=== PATIENT | male | born 1965 | race Caucasian/White ===

== ENCOUNTER 2020-10-26 12:33 | Inpatient (IN) ==
[2020-10-26] MEDS ORDERED: AMPICILLIN/SULBACTAM SOD 3,000 MG in 0.9 % SODIUM CHLORIDE 100 ML IV STA (12:57)
[2020-10-26] MEDS ORDERED: SODIUM CHLORIDE 0.9% 1000ML 1,000 ML IV SCH (13:00)
--- NOTE | 2020-10-26 13:03 | Emergency Department Note ---
History of Present Illness General Chief complaint: Dental/Oral Stated complaint: POST SURGERY INFECTION IN MOUTH Time Seen by Provider: 10/26/20 12:43 Source: patient Mode of arrival: ambulatory Limitations: no limitations History of Present Illness Maximum Pain Intensity: 0 This patient comes in complaining of dental/facial swelling. He had a tooth pulled his right lower posterior molar on Monday by a dentist and fell for has been on amoxicillin 500 3 times daily, he said initially the swelling was getting better but started getting worse over the weekend. He said that he has had no discharge the pain is very well controlled and he has no significant pain is just been using ibuprofen. There is no sensitivity to hot or cold. He is in no difficulty speaking or swallowing or shortness of breath. No swelling the mouth lips or tongue. No known exposure to Covid. He has been working from home. No fever or chills or cough or respiratory symptoms. No trauma or injury. Home Medications Medication Instructions Recorded Confirmed Type albuterol sulfate 2 puff INHALATION DAILY PRN 10/26/20 10/26/20 History hydrochlorothiazide 25 mg PO DAILY 10/26/20 10/26/20 History losartan 50 mg PO DAILY 10/26/20 10/26/20 History metoprolol succinate 100 mg PO DAILY 10/26/20 10/26/20 History Allergies Allergy/AdvReac Type Severity Reaction Status Date / Time No Known Allergies Allergy Unverified 10/26/20 14:00 Past Med/Surg History Social History Smoking Status: Never smoker Immunizations: Past medical historyhypertension. Denies diabetes. Denies any medication allergies. Review of Systems A total of 10 systems reviewed and were otherwise negative Physical Exam Vital Signs Vital Signs - 24 hr 10/26/20 12:36 10/26/20 14:13 10/26/20 16:55 Temperature 36.8 C Temperature Source Temporal Artery Scan Pulse Rate 89 81 Pulse Rate [Right Finger] 80 76 Pulse Rhythm [Right Finger] Regular Pulse Strength [Right Finger] Normal Respiratory Rate 18 16 20 Respiratory Effort / Characteristics Non-Labored Spontaneous Respiratory Depth Normal Respiratory Pattern Regular Blood Pressure 189/103 H Blood Pressure [Left Arm] 160/95 H 179/98 H Blood Pressure Mean 131 Blood Pressure Mean [Left Arm] 116 125 Pulse Oximetry 100 100 98 Oxygen Delivery Method Room Air Sepsis Recent Fever Within 48 Hours No Sepsis New/Unexplained Change in Mental Status No Sepsis Action Taken by Nursing No Action Required General: Well developed well nourished not ill-appearing nontoxic middle-age male who appears in no acute distress, breathing comfortably on room air. Normal speech, speaking and swallowing without difficulty HEENT: Normal cephalic atraumatic. He has moderate swelling of his right lateral mandible area. Its not red or warm respectively tender no fluctuance. Looking inside the mouth the floor the mouth is soft there is no Ludewig's angina. The tongue and lips are not swollen there is no posterior oropharyngeal swelling. The area of dental extraction has no pus drainage or fluctuance it is indurated mostly outside. Pupils are equal round and reactive to light. Extraocular movements are intact. Oropharynx is pink with moist mucous membranes. No swelling of the mouth lips or tongue. No drooling. Neck: Supple with a midline trachea. No meningeal signs or stiffness, no JVD or bruits. No Stridor. Chest: Clear to auscultation bilaterally. No wheezes or rhonchi. No increased work of breathing. Heart: Regular rate and rhythm without murmurs or gallops. Abdomen: Soft nontender, nondistended without rebound guarding or rigidity. Extremities: No cyanosis clubbing or edema. No calf tenderness or assymetry Spine/Back. Non tender to palpation. No CVA tenderness Skin: Good turgor without rashes. Neurologic exam: Cranial nerves two through 12 are intact. Motor and sensation are intact and symmetrical throughout. Course Administered Medications Discontinued Medications Acetaminophen (Acetaminophen 325 Mg Tab) Confirm Administered Dose 650 mg .ROUTE .STK-MED ONE Stop: 10/26/20 17:45 Last Admin: 10/26/20 17:45 Dose: 650 mg Documented by: [id number] Sodium Chloride (Nss 1000ml) 1,000 mls @ 999 mls/hr IV .Q1H1M ISMAEL Stop: 10/26/20 14:00 Last Infusion: 10/26/20 14:20 Dose: 0 mls/hr Documented by: [id number] Admin: 10/26/20 13:10 Dose: 999 mls/hr Documented by: [id number] Ampicillin Sodium/Sulbactam Sodium 3,000 mg/ Sodium Chloride 108 mls @ 200 mls/hr IV NOW STA; Protocol Stop: 10/26/20 13:29 Last Infusion: 10/26/20 14:20 Dose: 0 mls/hr Documented by: [id number] Admin: 10/26/20 13:13 Dose: 200 mls/hr Documented by: [id number] Sodium Chloride (Nss 1000ml) 1,000 mls @ 999 mls/hr IV .Q1H1M ONE Stop: 10/26/20 15:41 Last Infusion: 10/26/20 16:20 Dose: 0 mls/hr Documented by: [id number] Admin: 10/26/20 15:10 Dose: 999 mls/hr Documented by: [id number] Ioversol (Optiray 320 125ml) 94 ml IV ONCE ONE Stop: 10/26/20 14:03 Last Admin: 10/26/20 14:03 Dose: 94 ml Documented by: [id number] Medical Decision Making Differential Diagnosis Dental abscess, postop complication, dental caries, Michael's angina, abscess, Covid, electrolyte or metabolic abnormality Medical Records Attestation: I reviewed the patient's medical records. Home Medications Current Medication List: was personally reviewed by me Laboratory Data Attestation: I reviewed the patient's lab results. Result diagrams: 10/26/20 13:10 10/26/20 13:10 Lab Results 10/26/20 10/26/20 10/26/20 Range/Units 13:10 13:10 16:20 WBC 12.69 H (4.8-10.8) K/uL RBC 4.76 (4.7-6.1) M/uL Hgb 15.7 (14.0-18.0) g/dL Hct 42.8 (42-52) % MCV 89.9 (80-100) fL MCH 33.0 (25-34) pg MCHC 36.7 H (32-36) g/dL RDW Std Deviation 39.3 (36.4-46.3) fL RDW Coeff of Ben 11.9 (11.5-14.5) % Plt Count 472 H (130-400) K/uL MPV 9.1 (7.4-10.4) fL Immature Gran % (Auto) 3.3 % Neut % (Auto) 71.7 % Lymph % (Auto) 12.0 % [place] % (Auto) 12.2 % Eos % (Auto) 0.6 % Baso % (Auto) 0.2 % Neut # (Auto) 9.10 H (1.4-6.5) K/uL Lymph # (Auto) 1.52 (1.2-3.4) K/uL [place] # (Auto) 1.55 H (0.11-0.59) K/uL Eos # (Auto) 0.08 (0-0.5) K/uL Baso # (Auto) 0.02 (0-0.2) K/uL Immature Gran # (Auto) 0.42 H (0.00-0.02) K/uL Sodium 125 L (136-145) mmol/L Potassium 4.1 (3.5-5.1) mmol/L Chloride 94 L (98-107) mmol/L Carbon Dioxide 24 (21-32) mmol/L Anion Gap 7.0 (3-11) BUN 5 L (7-18) mg/dl Creatinine 0.87 (0.6-1.4) mg/dl Est Cr Clr Drug Dosing 124.6 ml/min Est GFR ( Amer) 113.4 Est GFR (Non-Af Amer) 97.8 BUN/Creatinine Ratio 6.1 L (10-20) Glucose 101 H (70-99) mg/dl Calcium 9.3 (8.5-10.1) mg/dl Total Bilirubin 0.8 (0.2-1) mg/dl AST 32 (15-37) U/L ALT 112 H (12-78) U/L Alkaline Phosphatase 111 (45-117) U/L Total Protein 7.9 (6.4-8.2) gm/dl Albumin 3.6 (3.4-5.0) gm/dl Globulin 4.3 H (2.5-4.0) gm/dl Albumin/Globulin Ratio 0.8 L (0.9-2) SARS-CoV-2 Ag (Rapid) Negative (Negative) Imaging Data Radiologist's Impression: CT soft tissue neck w con CT DOSE: 531.19 mGycm CLINICAL HISTORY: Right-sided neck/facial pain and swelling. TECHNIQUE: Helical images were acquired during intravenous administration of 94 cc of Optiray 320. A dose lowering technique was utilized adhering to the principles of ALARA. COMPARISON STUDY: None. FINDINGS: The visualized portions of the lung apices are unremarkable. There is a multinodular thyroid gland with nodules measuring up to 11 mm in diameter. There is infiltration of the fat adjacent to the right submandibular gland. There is an irregularly marginated 5 cm right submandibular mass with areas of central low attenuation suggesting necrosis or abscess. This lesion appears extrinsic to the right submandibular gland. Mildly prominent bilateral jugulodigastric lymph nodes, and submental lymph nodes are likely reactive. There is an empty right mandibular molar tooth socket consistent with a recent dental extraction. The bony defect extends to involve the medial mandibular cortex. There is no evidence of airway compromise. No mucosal space masses are visualized. IMPRESSION: 1. 5 cm right submandibular mass with areas of central low attenuation. Given the history of a recent dental extraction, this likely represents a postprocedural abscess or liquefying hematoma. Other less likely diagnostic considerations include necrotic neoplasm/lymph node, or secondarily infected branchial cleft cyst. MDM Narrative This patient comes in with continuing and worsening swollen area in his right jaw from where he had a tooth extracted he asked he has no pain and therefore do not think it is a dry socket he said no drainage. He is swollen. He has no evidence of airway compromise Ludewig's angina. He has been taking amoxicillin 500 mg 3 times daily is not red or warm. IV access established was hydrated normal saline bolus. Given Unasyn 3 g IV for antibiotic coverage and obtain blood work as well as a CAT scan to further evaluate for possibility of abscess. He was reassessed frequently. Dr. Barnes did see him in the emergency department as he does have an abscess he wants me to admit him and they will drain him in the morning in the OR at 930 also has a low sodium which is likely from his diuretics and he did receive a second liter IV normal saline bolus. T he patient was seen by Dr. Zurita medical consultation will be admitted for IV antibiotics and IV fluids and surgery in the morning. His Covid testing was negative and he has no symptoms to suggest Covid. Impression & Plan Dental abscess, Toothache, Acute hyponatremia, COVID-19 ruled out by laboratory testing Discharge Plan Visit Data Chief Complaint: Dental/Oral Stated Complaint: POST SURGERY INFECTION IN MOUTH ED Provider: Lisandro Zaman Discharge Problem: Dental abscess, Toothache, Acute hyponatremia, COVID-19 ruled out by laboratory testing Forms Stand Alone Forms: My [facility] Prescriptions Prescriptions: No Action losartan 50 mg tablet 50 mg PO DAILY RF: 0 metoprolol succinate 100 mg tablet extended release 24 hr 100 mg PO DAILY RF: 0 hydrochlorothiazide 25 mg tablet 25 mg PO DAILY RF: 0 albuterol sulfate 90 mcg/actuation HFA aerosol inhaler 2 puff INHALATION DAILY PRN (Reason: Shortness Of Breath) RF: 0
[2020-10-26 13:28] LABS: Basophils # (auto) 0.02 K/uL (0-0.2); Basophils % (auto) 0.2 %; Eosinophils # (auto) 0.08 K/uL (0-0.5); Eosinophils % (auto) 0.6 %; Hematocrit (blood only) 42.8 % (42-52); Hemoglobin 15.7 g/dL (14.0-18.0); Immature Granulocytes # (auto) 0.42 K/uL (0.00-0.02); Immature Granulocytes % (auto) 3.3 %; Lymphocytes # (auto) 1.52 K/uL (1.2-3.4); Mean Corpuscular Hgb Conc 36.7 g/dL (32-36); Mean Corpuscular Volume 89.9 fL (80-100); Mean Platelet Volume 9.1 fL (7.4-10.4); Monocytes # (auto) 1.55 K/uL (0.11-0.59); Monocytes % (auto) 12.2 %; Neutrophils % (auto) 71.7 %; Platelet Count 472 K/uL (130-400); RDW Coefficient of Variation 11.9 % (11.5-14.5); RDW Standard Deviation 39.3 fL (36.4-46.3); Red Blood Count 4.76 M/uL (4.7-6.1); White Blood Count 12.69 K/uL (4.8-10.8)
[2020-10-26 13:51] LABS: Albumin Level 3.6 gm/dl (3.4-5.0); BUN Creatinine Ratio 6.1 (10-20); Calcium 9.3 mg/dl (8.5-10.1); Creatinine Clr Calc Pharmacy 124.6 ml/min; Est GFR (African American) 113.4; Est GFR (Non-African American) 97.8; Potassium 4.1 mmol/L (3.5-5.1)
[2020-10-26 13:54] LABS: Albumin Globulin Ratio 0.8 (0.9-2); Bilirubin,Total 0.8 mg/dl (0.2-1); Globulin 4.3 gm/dl (2.5-4.0); Total Protein 7.9 gm/dl (6.4-8.2)
[2020-10-26] MEDS ORDERED: OPTIRAY 320 125ml IV ONE (14:02)
--- NOTE | 2020-10-26 14:26 | CT Scan Report ---
CT soft tissue neck w con CT DOSE: 531.19 mGycm CLINICAL HISTORY: Right-sided neck/facial pain and swelling. TECHNIQUE: Helical images were acquired during intravenous administration of 94 cc of Optiray 320. A dose lowering technique was utilized adhering to the principles of ALARA. COMPARISON STUDY: None. FINDINGS: The visualized portions of the lung apices are unremarkable. There is a multinodular thyroid gland with nodules measuring up to 11 mm in diameter. There is infiltration of the fat adjacent to the right submandibular gland. There is an irregularly m arginated 5 cm right submandibular mass with areas of central low attenuation suggesting necrosis or abscess. This lesion appears extrinsic to the right submandibular gland. Mildly prominent bilateral jugulodigastric lymph nodes, and submental lymph nodes are likely reactive . There is an empty right mandibular molar tooth socket consistent with a recent dental extraction. The bony defect extends to involve the medial mandibular cortex. There is no evidence of airway compromise. No mucosal space masses are visualized. IMPRESSION: 1. 5 cm right submandibular mass with areas of central low attenuation. Given the history of a recent dental extraction, this likely represents a postprocedural abscess or liquefying hematoma. Other les s likely diagnostic considerations include necrotic neoplasm/lymph node, or secondarily infected bran chial cleft cyst. ACT 112: Negative or not required by law. Electronically signed by: Shiva Haji M.D. 10/26/2020 2:24 PM
[2020-10-26] MEDS ORDERED: SODIUM CHLORIDE 0.9% 1000ML 1,000 ML IV ONE (14:41)
[2020-10-26] MEDS ORDERED: ACETAMINOPHEN 325 MG TAB ONE (17:44)
--- NOTE | 2020-10-26 19:00 | History & Physical Report ---
Date of Service October 26, 2020 Assessment & Plan (1) Dental abscess: 5 cm right submandibular mass/abscess- Status post dental extraction last week. Accumulated while on amoxicillin. Continue Unasyn 3 g IV every 6 hours, begun in the ED. Dr. Barnes taken to the OR in the morning. N.p.o. after midnight NSS + KCl 20 mEq at 100 mils per hour Present on Admission?: Yes (2) Toothache: (3) Acute hyponatremia: Sodium 125 upon admission. Hold HCTZ Present on Admission?: Yes (4) Abnormal LFTs: Can be followed as outpatient. Present on Admission?: Yes (5) Obesity (BMI 30-39.9): History of Present Illness Chief Complaint: The patient presents to the emergency department with complaint of right-sided face and jaw swelling, with history of a right lower posterior molar extraction 5 days ago, presently on amoxicillin 500 mg p.o. 3 times daily Primary Care Provider: Gogo Rendon MD The patient is a 55-year-old male with a past medical history of hypertension and obesity, who presents as noted above. He denies any systemic symptoms such as fevers, chills, nausea, vomiting, fatigue or weakness. He was seen by Dr. Barnes from maxillofacial surgery,, who asked that the patient be admitted to medical service overnight, and he was planning on taking the patient to the OR in the morning. Allergies Allergy/AdvReac Type Severity Reaction Status Date / Time No Known Allergies Allergy Unverified 10/26/20 14:00 Home Medications Medication Instructions Recorded Confirmed Type albuterol sulfate 2 puff INHALATION DAILY PRN 10/26/20 10/26/20 History hydrochlorothiazide 25 mg PO DAILY 10/26/20 10/26/20 History losartan 50 mg PO DAILY 10/26/20 10/26/20 History metoprolol succinate 100 mg PO DAILY 10/26/20 10/26/20 History Past Med/Surg History Social History Smoking Status: Never smoker Review of Systems Review of Systems: The patient denies chest pain, palpitations, shortness of breath, dyspnea on exertion, cough, lower extremity swelling, sore throat, fevers, chills, sweats, weight change, fatigue, nausea, vomiting, diarrhea , constipation, abdominal pain, pelvic pain, blood in urine or stool, dysuria, urinary frequency or urgency, lightheadedness, dizziness, headache, memory loss, loss of consciousness, imbalance, focal or generalized weakness, numbness or tingling in arms or legs, generalized arthralgias or myalgias, back or neck pain, or night sweats. The review of systems is otherwise negative other than for that already noted above, and at least 10 systems have been reviewed. Physical Exam Physical Exam: The patient is awake, alert and oriented 3, well developed and well nourished, large area of swelling centered over right mandibul ar/submandibular area, standing upright, walking around in room, and in no acute distress. HEENT--PERRL, EOMI, mucous membranes and oropharynx dry. Large area of swelling of the right mandibular submandibular area Neck--supple. No JVD. No bruits. Thyroid normal, trachea midline, no adenopathy. Heart--normal S1 and S2. No murmurs, rubs or gallops. Lungs--clear bilaterally, no respiratory distress, no accessory muscle use. Abdomen--normal bowel sounds and soft. Nontender. Nondistended. Obese. Extremities--no cyanosis or clubbing. No edema. Dermatologic--normal skin turgor. Erythema and induration over right mandibular submandibular area Neurologic--cranial nerves II through XII grossly intact. Rheumatologic--normal range of motion. Psychiatric--normal affect. Results & Data Results & Data ([facility]) Vital Signs (Past 12 Hours) Vital Signs Temp Pulse Pulse Resp BP BP Pulse Ox 10/26/20 18:35 76 20 154/94 H 98 10/26/20 16:55 76 20 179/98 H 98 10/26/20 14:13 81 80 16 160/95 H 100 10/26/20 12:36 98.2 F 89 18 189/103 H 100 Laboratory Results Laboratory Results WBC 12.69 K/uL (4.8-10.8) H 10/26/20 13:10 RBC 4.76 M/uL (4.7-6.1) 10/26/20 13:10 Hgb 15.7 g/dL (14.0-18.0) 10/26/20 13:10 Hct 42.8 % (42-52) 10/26/20 13:10 MCV 89.9 fL (80-100) 10/26/20 13:10 MCH 33.0 pg (25-34) 10/26/20 13:10 MCHC 36.7 g/dL (32-36) H 10/26/20 13:10 RDW Std Deviation 39.3 fL (36.4-46.3) 10/26/20 13:10 RDW Coeff of Ben 11.9 % (11.5-14.5) 10/26/20 13:10 Plt Count 472 K/uL (130-400) H 10/26/20 13:10 MPV 9.1 fL (7.4-10.4) 10/26/20 13:10 Immature Gran % (Auto) 3.3 % 10/26/20 13:10 Neut % (Auto) 71.7 % 10/26/20 13:10 Lymph % (Auto) 12.0 % 10/26/20 13:10 [place] % (Auto) 12.2 % 10/26/20 13:10 Eos % (Auto) 0.6 % 10/26/20 13:10 Baso % (Auto) 0.2 % 10/26/20 13:10 Neut # (Auto) 9.10 K/uL (1.4-6.5) H 10/26/20 13:10 Lymph # (Auto) 1.52 K/uL (1.2-3.4) 10/26/20 13:10 [place] # (Auto) 1.55 K/uL (0.11-0.59) H 10/26/20 13:10 Eos # (Auto) 0.08 K/uL (0-0.5) 10/26/20 13:10 Baso # (Auto) 0.02 K/uL (0-0.2) 10/26/20 13:10 Immature Gran # (Auto) 0.42 K/uL (0.00-0.02) H 10/26/20 13:10 Sodium 125 mmol/L (136-145) L 10/26/20 13:10 Potassium 4.1 mmol/L (3.5-5.1) 10/26/20 13:10 Chloride 94 mmol/L (98-107) L 10/26/20 13:10 Carbon Dioxide 24 mmol/L (21-32) 10/26/20 13:10 Anion Gap 7.0 (3-11) 10/26/20 13:10 BUN 5 mg/dl (7-18) L 10/26/20 13:10 Creatinine 0.87 mg/dl (0.6-1.4) 10/26/20 13:10 Est Cr Clr Drug Dosing 124.6 ml/min 10/26/20 13:10 Est GFR ( Amer) 113.4 10/26/20 13:10 Est GFR (Non-Af Amer) 97.8 10/26/20 13:10 BUN/Creatinine Ratio 6.1 (10-20) L 10/26/20 13:10 Glucose 101 mg/dl (70-99) H 10/26/20 13:10 Calcium 9.3 mg/dl (8.5-10.1) 10/26/20 13:10 Total Bilirubin 0.8 mg/dl (0.2-1) 10/26/20 13:10 AST 32 U/L (15-37) 10/26/20 13:10 ALT 112 U/L (12-78) H 10/26/20 13:10 Alkaline Phosphatase 111 U/L (45-117) 10/26/20 13:10 Total Protein 7.9 gm/dl (6.4-8.2) 10/26/20 13:10 Albumin 3.6 gm/dl (3.4-5.0) 10/26/20 13:10 Globulin 4.3 gm/dl (2.5-4.0) H 10/26/20 13:10 Albumin/Globulin Ratio 0.8 (0.9-2) L 10/26/20 13:10 SARS-CoV-2 Ag (Rapid) Negative (Negative) 10/26/20 16:20 Diagnostic Findings [facility], [phone] CT Scan Report Patient: AMY MENDOZA LEEAdmit Date: 10/26/20MR#: [id number]: [address] ID:[id number]: Date: [address] Zip: [place], [place] [id number]: 55Location: EDSex: MRoom/Bed:Att Phy:Diagnosis: POST SURGERY INFECTION IN MOUTHPri Phy: Gogo Rendon M.D.Service Date: 10/26/20Fa Phy:Interpreting Phy: Shiva Haji MDAdmit Phy: Ordering Phy: Lisandro Zaman M.D. cc: ~ CT soft tissue neck w con CT DOSE: 531.19 mGycm CLINICAL HISTORY: Right-sided neck/facial pain and swelling. TECHNIQUE: Helical images were acquired during intravenous administration of 94 cc of Optiray 320. A dose lowering technique was utilized adhering to the principles of ALARA. COMPARISON STUDY: None. FINDINGS: The visualized portions of the lung apices are unremarkable. There is a multinodular thyroid gland with nodules measuring up to 11 mm in diameter. There is infiltration of the fat adjacent to the right submandibular gland. There is an irregularly marginated 5 cm right submandibular mass with areas of central low attenuation suggesting necrosis or abscess. This lesion appears extrinsic to the right submandibular gland. Mildly prominent bilateral jugulodigastric lymph nodes, and submental lymph nodes are likely reactive. There is an empty right mandibular molar tooth socket consistent with a recent dental extraction. The bony defect extends to involve the medial mandibular cortex. There is no evidence of airway compromise. No mucosal space masses are visualized. IMPRESSION: 1. 5 cm right submandibular mass with areas of central low attenuation. Given the history of a recent dental extraction, this likely represents a postprocedural abscess or liquefying hematoma. Other less likely diagnostic considerations include necrotic neoplasm/lymph node, or secondarily infected branchial cleft cyst. ACT 112: Negative or not required by law. Electronically signed by: Shiva Haji M.D. 10/26/2020 2:24 PM Dictated: 10/26/20 141Transcribed: 10/26/20 141 Code Status & VTE Plan Code Status Full code VTE Prophylaxis Plan VTE Prophylaxis will be ordered: Yes PG Care Time/CCT Total # of Minutes Spent Total Time Spent with Patient: Total time spent is greater than 50% in coordination of care (as documented) at patient's floor/unit and/or counseling patient: Coding Level of Care Code 52862 Initial Inpt Care Lvl 2 Diagnoses Dental abscess K04.7 Toothache K08.89 Acute hyponatremia E87.1 Abnormal LFTs R94.5 Obesity (BMI 30-39.9) E66.9
[2020-10-26] MEDS ORDERED: ONDANSETRON INJ 2 MG/ML 2 ML VIAL IV PRN (19:44)
[2020-10-26] MEDS: AMPICILLIN/SULBACTAM SOD 3,000 MG in 0.9 % SODIUM CHLORIDE 100 ML IV SCH (20:32)
[2020-10-26] MEDS: NSS + 20MEQ KCL 20 MEQ/1,000 ML BAG IV SCH (20:32)
--- NOTE | 2020-10-26 20:45 | Oral/Maxillofacial Consult ---
Date of Consultation October 26, 2020 Oral Maxillofacial Surgery Exam emergency Room consult due to acute early onset of Michael Angina. Present Complaint: I have pain/swelling/drainage from where my infected tooth was extracted Dr Massey 5 days ago Symptoms / swelling improved slightly after the extraction but redeveloped Monday and progressively got worse prompting Tyrel coming into the ED this afternoon Oral Exam: Finding-Massive swelling left submandibular area and submental area crossing midline indurated and fluctuant areas noted, very tender,hot and painful. No floor of mouth swelling but painful to touch, no breathing airway issues presently. tender gingival tissue extra oral I&D is clinical indicated once we rehydrate and correct this Na levels and start IV antibiotics For I&D tomorrow in OR/ General anesthesia CT Scan: see report I reviewed the CT scan, infection present submandibular area and under chin (submental area) extraction site #31 Soft tissue: floor of the mouth, tongue--very tender to the touch, some swelling noted, area is red and slightly raised. hard/soft palate, posterior pharyngeal area all with in normal limits, no pathology or abnormal findings noted in theses areas The massive swelling is associated with the submandibular and submental area. No trismus as of yet, No swallowing issues as floor of mouth is just tender and slight swelling No other noted that require follow up or Bx. Oral Care: Overall oral care is good This is an isolated infection that developed before the tooth was extracted that has not responded to the extractions or oral antibiotics Occlusion: Class I TMJ exam: No pop, clicking, pain, good ROM, No history of TMJ injury or dysfunction Periodontal exam: Healthy gingival tissue without evidence of periodontal pathology Head/Neck exam: Neck is , FROM,swollen from above mentioned infection Able to extend and flex neck with some difficulty due to the infection right side., Treatment Plan: Set up with general anesthesia in hospital due to complexity of the procedure for extraoral I&D of acute facial infection (early Michael angina), obtain C&S. I reviewed the treatment plan and consent with the patient. Understanding was expressed. Time was given for questions regarding the surgery, risks and post op care. Discussed that there are no alternative to treatment--procedure (I&D) must be planned VIVIANA, Do not do surgery is not an option Risks discussed: Pain,swelling,infection, dry socket, delayed healing, nerve injury to face,lips,tongue,chin area which could be permanent (rare). TMJ, jaw stiffness, change in bite (rare), ear pain (referred). Development of skin fistula or reoccurrence of infection. Scaring, Must shave to allow access to the infected swollen sites Home care reviewed: tooth brushing, rinsing, follow up care with Dr Barnes to remove drains diet=[id number] dental. Discussed activity level, driving/work while on Rx pain Meds. Surgery set up for MondayOctober 27 at 9:15 NPO COVID testing Must Shave History of Present Illness Attending Physician: Garret Ritchie MD Allergies Allergy/AdvReac Type Severity Reaction Status Date / Time No Known Allergies Allergy Unverified 10/26/20 14:00 Home Medications Medication Instructions Recorded Confirmed Type albuterol sulfate 2 puff INHALATION DAILY PRN 10/26/20 10/26/20 History hydrochlorothiazide 25 mg PO DAILY 10/26/20 10/26/20 History losartan 50 mg PO DAILY 10/26/20 10/26/20 History metoprolol succinate 100 mg PO DAILY 10/26/20 10/26/20 History Patient History Social History Smoking Status: Never smoker Second Hand Exposure: No; Hx Alcohol Use: Yes Alcohol type: beer Hx Substance Use: No Preferred Language: Arabic Communication Ability: Effective 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 Beliefs That Will Affect Care: None Current Living Situation: Alone Feels Safe at Home: Yes Assistive Devices: Contacts and Glasses Physical Exam Constitutional: well groomed and + overweight Eyes: PERRL, conjunctivae normal, anicteric sclerae normal visual hui by confrontation ENMT: external ear and nose normal, oropharynx normal Mouth: + oral mucosal abnormality, + malodorous breath and + gingival abnormality Neck: normal visual inspection, trachea midline, + anterior neck swelling, + submandibular swelling, + short neck, + thick neck and + facial hair Thyroid: normal thyroid Skin: normal turgor Psychiatric: Orientation: oriented x 3 and oriented to person Apperance: appropriately groomed Eye Contact: good eye contact Lymphatic: + lymphadenopathy and + cervical lymphadenopathy Results & Data ([facility]) Vital Signs (Past 12 Hours) Vital Signs Temp Pulse Pulse Resp BP BP BP 12/14/20 19:51 36.1 C L 88 18 165/96 H 10/26/20 19:12 79 18 143/98 H 10/26/20 18:35 76 20 154/94 H 10/26/20 16:55 76 20 179/98 H 10/26/20 14:13 81 80 16 160/95 H 10/26/20 12:36 36.8 C 89 18 189/103 H Pulse Ox 10/26/20 19:51 99 10/26/20 19:12 100 10/26/20 18:35 98 10/26/20 16:55 98 10/26/20 14:13 100 10/26/20 12:36 100 PG Care Time/CCT Total # of Minutes Spent Total Time Spent with Patient: Total time spent is greater than 50% in coordination of care (as documented) at patient's floor/unit and/or counseling patient: Coding Level of Care Code 38880 Office/OBS Consult Lvl 3
[2020-10-27] MEDS: ACETAMINOPHEN 325 MG TAB PO PRN ×4 (00:08→23:59)
[2020-10-27] MEDS: AMPICILLIN/SULBACTAM SOD 3,000 MG in 0.9 % SODIUM CHLORIDE 100 ML IV SCH ×4 (02:17→18:53)
[2020-10-27] MEDS: NSS + 20MEQ KCL 20 MEQ/1,000 ML BAG IV SCH ×2 (06:30→12:54)
[2020-10-27 06:52] LABS: Basophils # (auto) 0.03 K/uL (0-0.2); Basophils % (auto) 0.2 %; Eosinophils # (auto) 0.08 K/uL (0-0.5); Eosinophils % (auto) 0.6 %; Hematocrit (blood only) 39.6 % (42-52); Hemoglobin 14.1 g/dL (14.0-18.0); Immature Granulocytes # (auto) 0.37 K/uL (0.00-0.02); Immature Granulocytes % (auto) 2.9 %; Lymphocytes # (auto) 1.92 K/uL (1.2-3.4); Lymphocytes % (auto) 14.8 %; Mean Corpuscular Hemoglobin 32.4 pg (25-34); Mean Corpuscular Hgb Conc 35.6 g/dL (32-36); Mean Platelet Volume 8.8 fL (7.4-10.4); Monocytes # (auto) 1.82 K/uL (0.11-0.59); Monocytes % (auto) 14.1 %; Neutrophils # (auto) 8.73 K/uL (1.4-6.5); Neutrophils % (auto) 67.4 %; Platelet Count 412 K/uL (130-400); RDW Standard Deviation 40.2 fL (36.4-46.3); Red Blood Count 4.35 M/uL (4.7-6.1); White Blood Count 12.95 K/uL (4.8-10.8)
[2020-10-27 07:00] LABS: Partial Thromboplastin Ratio 1.1; Partial Thromboplastin Time 31.6 Seconds (21.0-31.0)
[2020-10-27 07:28] LABS: Albumin Globulin Ratio 0.9 (0.9-2); Albumin Level 3.3 gm/dl (3.4-5.0); Bilirubin,Total 0.9 mg/dl (0.2-1); Creatinine Clr Calc Pharmacy 123.8 ml/min; Est GFR (African American) 113.4; Est GFR (Non-African American) 97.8; Globulin 3.9 gm/dl (2.5-4.0); Magnesium 2.1 mg/dl (1.8-2.4); Potassium 3.8 mmol/L (3.5-5.1); Total Protein 7.2 gm/dl (6.4-8.2)
--- NOTE | 2020-10-27 09:05 | Anesthesiology Consultation ---
Date of Service October 27, 2020 Assessment & Plan (1) Encounter for pre-operative examination: Chart Review Chart Review: Acceptable Risk for Surgery Consults Requested none ASA ASA2 Proposed Anesthesia Anesthesia Type: General Risk / Benefits Reviewed With: PT / POA / Parent / Guardian, Accepts Plan and Informed Consent Obtained History Surgery Operation Date: 10/27/20 09:10 Proposed Procedures p Right Facial Incision and Drainage - Joni Barnes, DMD Height/Weight Height: 6 ft Weight: 109 kg Allergies Allergy/AdvReac Type Severity Reaction Status Date / Time No Known Allergies Allergy Unverified 10/26/20 14:00 Medications Home Medications Medication Instructions Recorded Confirmed Last Taken albuterol sulfate 2 puff INHALATION DAILY PRN 10/26/20 10/26/20 10/26/20 hydrochlorothiazide 25 mg PO DAILY 10/26/20 10/26/20 10/26/20 losartan 50 mg PO DAILY 10/26/20 10/26/20 10/26/20 metoprolol succinate 100 mg PO DAILY 10/26/20 10/26/20 10/26/20 Active Medications Generic Name Dose Route Start Last Admin Trade Name Freq PRN Reason Stop Dose Admin Acetaminophen 650 mg 10/26/20 19:44 10/27/20 00:08 Acetaminophen 325 Mg Tab PO 11/25/20 19:43 650 mg Q4H PRN Administration pain/fever Potassium Chloride/Sodium Chloride 20 meq in 1,000 mls @ 100 mls/hr 10/26/20 19:45 10/27/20 06:30 Normal Saline W/20 Meq Kcl IV 11/25/20 19:44 100 mls/hr .Q10H ISMAEL Administration Ampicillin Sodium/Sulbactam 108 mls @ 200 mls/hr 10/26/20 20:00 10/27/20 02:50 Sodium 3,000 mg/ Sodium IV 11/02/20 19:59 Infused Chloride Q6H ISMAEL Infusion Protocol NPO Date Last Intake of Fluids: 10/26/20 Time Last Intake of Fluids: 23:59 Date Last Intake of Solids: 10/26/20 Time Last Intake of Solids: 23:00 Past Medical History Medical History (Updated 10/27/20 @ 09:08 by Alton Jernigan DO) HTN (hypertension) Exercise / Class Metabolic Activity II 4-5 Yardwork/Stairs/Walk up hill Past Anesthesia History No Hx of Anesthesia Complications and No Family Hx of Anesthesia Complications History of PONV No Hx of PONV and No Hx of Motion Sickness Social History Smoking Status: Never smoker Do You Dip or Chew Tobacco: Yes Hx Alcohol Use: Yes Alcohol type: beer alcohol intake frequency: a few times a week Hx Substance Use: No substance use type: does not use Physical Exam Vital Signs Last Vital Signs Temp 98.1 F 10/27/20 07:05 Pulse 94 H 10/27/20 08:56 Resp 18 10/27/20 08:56 BP 153/89 H 10/27/20 08:56 Pulse Ox 97 10/27/20 08:56 ENMT Mouth: no dentition abnormality Thyromental Distance: > or= 3.5 Finger Breadths Mallampati Class: III Neck normal visual inspection Respiratory normal respiratory effort Auscultation: lungs clear to auscultation bilaterally Cardiovascular Rate/Rhythm: regular rate and regular rhythm Testing Laboratory Results 10/27/20 06:34 10/27/20 06:34 PT 11.0 Seconds (9.0-12.0) 10/27/20 06:34 INR 1.0 (0.9-1.1) 10/27/20 06:34 APTT 31.6 Seconds (21.0-31.0) H 10/27/20 06:34
[2020-10-27] MEDS ORDERED: fentaNYL citrate 100 MCG/2 ML VIAL ONE ×3 (09:26→11:38)
[2020-10-27] MEDS ORDERED: DEXAMETHASONE SOD INJ 4 MG/ML VIAL ONE (09:26)
[2020-10-27] MEDS ORDERED: ONDANSETRON INJ 2 MG/ML 2 ML VIAL ONE (09:26)
[2020-10-27] MEDS ORDERED: PROPOFOL IV EMULSION 10 MG/ML 20 ML VIAL IV ONE (09:26)
[2020-10-27] MEDS ORDERED: MIDAZOLAM HCL 1 MG/ML 2ML VIAL ONE (09:26)
[2020-10-27] MEDS ORDERED: ROCURONIUM BROMIDE 10 MG/ML 5 ML VIAL IV ONE (09:26)
[2020-10-27] MEDS ORDERED: LIDOCAINE HCL 2% 2 ML VIAL/AMP(20MG/ML) INFIL ONE (09:26)
--- NOTE | 2020-10-27 09:33 | History & Physical Bridge Note ---
Date of Service October 27, 2020 History & Physical Bridge Note I have examined the patient, reviewed the History & Physical and in the interval since the performance of the History & Physical I have noted the following changes of clinical significance: no changes noted We will plan I and D today with C&S
[2020-10-27] MEDS ORDERED: CHLORHEXIDINE GLUCONATE 0.12% 480 ML ONE (10:23)
[2020-10-27] MEDS ORDERED: BUPIVACAINE/EPINEPHRINE 0.5% MPF 1:200,000 30 ML VIAL ONE (10:25)
[2020-10-27] MEDS ORDERED: LIDOCAINE 2%/EPINEPHRINE 1:100,000 1.8 ML CARTRIDGE ONE (10:28)
[2020-10-27] MEDS: LOSARTAN POTASSIUM 50 MG TAB PO SCH (10:28)
[2020-10-27] MEDS: METOPROLOL SUCC 50MG EXT REL TAB PO SCH (10:29)
[2020-10-27] MEDS ORDERED: SUCCINYLCHOLINE CHLORIDE 20 MG/ML 10 ML VIAL IV ONE (10:30)
[2020-10-27] MEDS ORDERED: CLINDAMYCIN PHOS 300 MG/2 ML VIAL ONE (10:39)
[2020-10-27] MEDS ORDERED: NEOSTIGMINE METHYLSULFATE 5 MG/5 ML SYR ONE (11:01)
[2020-10-27] MEDS ORDERED: ALBUTEROL HFA INHALER 8.5 GM ONE (11:01)
[2020-10-27] MEDS ORDERED: LABETALOL HCL IV 5 MG/ML 20ML IV ONE (11:01)
[2020-10-27] MEDS ORDERED: GLYCOPYRROLATE 0.2 MG/ML VIAL ONE (11:01)
[2020-10-27] MEDS ORDERED: CHLORHEXIDINE GLUCONATE 0.12% 480 ML MT PRN (11:15)
--- NOTE | 2020-10-27 11:15 | Post Operative Brief Note ---
PG Immediate Post Op with CF Date of Surgery October 27, 2020 Pre & Post Diagnosis Operation Date: 10/27/20 09:10 Pre-Op Diagnosis: Post Surgery Infection in Mouth, Michael Angina right side - Post-Op Diagnosis: Post Surgery Infection in Mouth (same) I identified the patient and participated in the time-out.: Yes Procedure Operation Date: 10/27/20 09:10 Actual Procedures p Right Facial Incision and Drainage(Right) - Joni Barnes DMD Surgeon Joni Barnes, TERA Turner Machine none Estimated Blood Loss 10 Findings Consistent with Post-Op Diagnosis
[2020-10-27] MEDS ORDERED: ONDANSETRON INJ 2 MG/ML 2 ML VIAL IV PRN (11:47)
[2020-10-27] MEDS ORDERED: ePHEDrine sulfate 50 MG/ML AMP IV PRN (11:47)
[2020-10-27] MEDS ORDERED: fentaNYL citrate 100 MCG/2 ML VIAL IV PRN ×2 (11:47)
[2020-10-27] MEDS ORDERED: ATROPINE SULFATE 0.1 MG/ML 10ML SYR IV PRN (11:47)
--- NOTE | 2020-10-27 11:53 | Anesthesiology Progress Note ---
Date of Service October 27, 2020 Anesthesia Post Procedure Vital Signs Vital Signs: Temp Pulse Pulse Pulse Resp BP BP 10/27/20 11:45 66 12 136/73 10/27/20 11:35 83 18 144/78 H 10/27/20 11:25 82 15 135/86 10/27/20 11:19 98.2 F 98 H 18 139/69 10/27/20 08:56 98.1 F 94 H 18 153/89 H 10/27/20 07:05 98.1 F 92 H 18 10/26/20 23:37 98.2 F 93 H 16 10/26/20 19:51 97.0 F L 88 18 10/26/20 19:12 79 18 143/98 H 10/26/20 18:35 76 20 154/94 H 10/26/20 16:55 76 20 179/98 H 10/26/20 14:13 81 80 16 160/95 H 10/26/20 12:36 98.2 F 89 18 189/103 H BP Pulse Ox 10/27/20 11:45 93 10/27/20 11:35 94 10/27/20 11:25 95 10/27/20 11:19 98 10/27/20 08:56 97 10/27/20 07:05 153/92 H 97 10/26/20 23:37 157/93 H 96 10/26/20 19:51 165/96 H 99 10/26/20 19:12 100 10/26/20 18:35 98 10/26/20 16:55 98 10/26/20 14:13 100 10/26/20 12:36 100 Pain Intensity Right Jaw: Pain Intensity: 4 Transfer of Care Handoff Completed per policy Notes Mental Status: alert / awake / arousable and participated in evaluation Patient Amnestic to Procedure: Yes Nausea / Vomiting: adequately controlled Pain: adequately controlled Airway Patency, RR, SpO2: stable & adequate BP & HR: stable & adequate Hydration State: stable & adequate Anesthetic Complications: no major complications apparent and Pt Satisfied with anesthetic care
--- NOTE | 2020-10-27 13:38 | Hospitalist Progress Note ---
Date of Service October 27, 2020 Assessment & Plan (1) Dental abscess: - 5 cm right submandibular mass/abscess- Status post dental extraction last week. Accumulated while on amoxicillin. - Continue Unasyn 3 g IV q6h, started on admission - likely can transition to PO tomorrow - Dr. Barnes performed I&D 10/27- appreciate - Allowed clear liquid diet for now - NSS + KCl 20 mEq at 100 ml/hr - likely can dc this later today if tolerates PO intake. - Follow am labs and wound cultures (2) Toothache: - As above (3) Acute hyponatremia: - Improved to 132 - pt admits to drinking 3-5 beers per day at least 4-5 days per week. Reports goes 4-5 days without drinking any alcohol at times. Possible hyponatremia secondary to beer potomania. Encouraged to diminish alcohol intake. Denies ever having withdrawal sx, monitor. - Hold HCTZ -follow BMP (4) Abnormal LFTs: - Can be followed as outpatient - Likely secondary to alcohol use as above, monitor and are improved today -added thiamine, folic acid, MVI (5) Obesity (BMI 30-39.9): - Diet and exercise to be encouraged (6) Tobacco use: - chews tobacco, cessation encouraged. Stated should not chew during active healing s/p dental abscess I&D. Pt agreeable. Will order nicotine patch. (7) HTN (hypertension): - Cont losartan 50 mg daily and metoprolol succinate 100 mg daily, holding hctz as above DVT ppx: ambulatory CODE: FULL Dispo: From home, plan to discharge once stable per oromaxillofacial surg, likely remain in hospital x 1 more day. Admission and Anticipated Discharge Date Admission Date: October 26, 2020 Supervising Physician Co-Signing Physician Notes PA Supervision Note: I did not personally see or examine the patient today, but I verified all louise points of LIAN Mcdaniel's assessment and plan with the following exceptions/additions: None Subjective Pt is doing well s/p surgery, he is seen eating lunch which is clear liquid diet, tolerating it without any issues. He reports chewing tobacco- encouraged to stop - stated should avoid this completely for next two weeks for healing purposes. He was agreeable to a nicotine patch. Denies any other acute complaints. Review of Systems Review of Systems: Constitutional: No fever, sweats or chills Eyes: No diplopia, no worsening or blurred vision ENT: normal hearing, no trouble swallowing, eating clear liquid diet without difficulty, slight soreness on outside of left mandible. Respiratory: No cough, sputum, dyspnea at rest or on exertion Cardiovascular: No chest pain, tightness or palpitations Abdomen: No pain, nausea, vomiting, diarrhea or constipation Musculoskeletal: No joint pain, calf pain, swelling Neurologic: No weakness, numbness/tingling, or balance problems Psychiatric: No anxiety or depression Skin: No rash or itch Physical Exam Physical Exam: General: awake, alert, no apparent distress, + obese BMI 32.6 Head: Normocephalic, atraumatic ENT: PERRL, EOMI, no pharyngeal exudate, mucous membranes moist, + poor dentition, + surgical bandage on R submandibular region c/d/i. Chest: Clear to auscultation, on room air, no adventitious breath sounds Cardiac: Regular rate and rhythm, no murmur, no JVD, normal peripheral pulses, good capillary refill Abdominal: NABS x 4 quadrants, soft, nondistended, nontender to palpation, no rebound or guarding Extremities: Normal inspection, no peripheral edema or erythema, calfs nontender to palpation Psych: Normal mood and affect Neuro: AAO x 3, strength intact bilaterally and rated 5/5, no motor deficits, speech is clear, no peripheral sensory deficits Results & Data Results & Data ([facility]) Vital Signs (Past 12 Hours) Vital Signs Temp Pulse Pulse Resp BP BP Pulse Ox 10/27/20 13:14 36.5 C 96 H 18 156/96 H 96 10/27/20 12:45 36.6 C 92 H 18 160/96 H 95 10/27/20 12:15 37.0 C 82 16 146/84 H 95 10/27/20 11:55 37 C 68 14 120/76 95 10/27/20 11:45 66 12 136/73 93 10/27/20 11:35 83 18 144/78 H 94 10/27/20 11:25 82 15 135/86 95 10/27/20 11:19 36.8 C 98 H 18 139/69 98 10/27/20 08:56 36.7 C 94 H 18 153/89 H 97 10/27/20 07:05 36.7 C 92 H 18 153/92 H 97 PG Care Time/CCT Total # of Minutes Spent Total Time Spent with Patient: Total time spent is greater than 50% in coordination of care (as documented) at patient's floor/unit and/or counseling patient: Coding Level of Care Code 29852 Subseq Hosp Care Lvl 3 Diagnoses Dental abscess K04.7 Toothache K08.89 Acute hyponatremia E87.1 Abnormal LFTs R94.5 Obesity (BMI 30-39.9) E66.9 Tobacco use Z72.0 HTN (hypertension) I10
[2020-10-27] MEDS ORDERED: traMADol HCL 50 MG TABLET PO PRN (14:04)
[2020-10-27] MEDS: NICOTINE 21 MG/24 HR TDSY TD SCH (15:28)
[2020-10-27] MEDS ORDERED: METOPROLOL SUCC 50MG EXT REL TAB PO STA (22:54)
--- NOTE | 2020-10-27 22:56 | Communication Note ---
Date of Service: October 27, 2020 Notifiede by nursing of elevated BP 150/92, rate 98. Wasn't as concerned as asymptomatic, but on chart review didn't recieve his beta-christal this mornign as was in surgey. Will give half of regular dose tonight Toprol XL 50mg PO for cardio protection. Resident Activity Tracking Resident Involvement: Resident Care Provided Care Provided: Adult Hospital Medicine
[2020-10-28] MEDS: AMPICILLIN/SULBACTAM SOD 3,000 MG in 0.9 % SODIUM CHLORIDE 100 ML IV SCH ×2 (00:03→06:11)
[2020-10-28] MEDS: NSS + 20MEQ KCL 20 MEQ/1,000 ML BAG IV SCH ×2 (01:05→09:40)
[2020-10-28 06:04] LABS: Basophils # (auto) 0.03 K/uL (0-0.2); Basophils % (auto) 0.2 %; Eosinophils # (auto) 0.05 K/uL (0-0.5); Eosinophils % (auto) 0.4 %; Hematocrit (blood only) 37.4 % (42-52); Immature Granulocytes # (auto) 0.43 K/uL (0.00-0.02); Immature Granulocytes % (auto) 3.6 %; Lymphocytes # (auto) 1.83 K/uL (1.2-3.4); Lymphocytes % (auto) 15.1 %; Mean Corpuscular Hemoglobin 32.3 pg (25-34); Mean Corpuscular Hgb Conc 34.8 g/dL (32-36); Mean Corpuscular Volume 92.8 fL (80-100); Mean Platelet Volume 8.7 fL (7.4-10.4); Monocytes # (auto) 1.65 K/uL (0.11-0.59); Monocytes % (auto) 13.6 %; Neutrophils # (auto) 8.11 K/uL (1.4-6.5); Neutrophils % (auto) 67.1 %; Platelet Count 440 K/uL (130-400); RDW Coefficient of Variation 12.1 % (11.5-14.5); RDW Standard Deviation 41.4 fL (36.4-46.3); Red Blood Count 4.03 M/uL (4.7-6.1)
[2020-10-28 06:24] LABS: Albumin Level 3.3 gm/dl (3.4-5.0); BUN Creatinine Ratio 6.8 (10-20); Calcium 8.7 mg/dl (8.5-10.1); Creatinine Clr Calc Pharmacy 114.6 ml/min; Est GFR (African American) 106.1; Est GFR (Non-African American) 91.6; Potassium 3.9 mmol/L (3.5-5.1)
[2020-10-28 06:27] LABS: Albumin Globulin Ratio 0.9 (0.9-2); Bilirubin,Total 0.7 mg/dl (0.2-1); Globulin 3.8 gm/dl (2.5-4.0); Total Protein 7.1 gm/dl (6.4-8.2)
[2020-10-28] MEDS: NICOTINE 21 MG/24 HR TDSY TD SCH (07:40)
[2020-10-28] MEDS ORDERED: THIAMINE HCL 100 MG TAB PO SCH (09:00)
[2020-10-28] MEDS ORDERED: FOLIC ACID 400 MCG TAB PO SCH (09:00)
[2020-10-28] MEDS ORDERED: MULTIVITAMIN TAB PO SCH (09:00)
[2020-10-28] MEDS: LOSARTAN POTASSIUM 50 MG TAB PO SCH (09:06)
[2020-10-28] MEDS: METOPROLOL SUCC 50MG EXT REL TAB PO SCH (09:06)
--- NOTE | 2020-10-28 10:20 | Oral/Maxillofacial Progress Nt ---
Date of Service Post op day # 1 He is doing very well, drains functioning very well. Swelling much softer. No airway issues or swallowing issues. I feel he can be sent home on Augmentin 875 BID with Clindamycin 300 BID x 10 days. Suggested massage, heat and change dressing as needed. I will see him on Monday for drain removal. If OK with medicine He will be D/C this AM EXCELLENT response from I&D yesterday October 28, 2020 Assessment & Plan Admission and Anticipated Discharge Date Admission Date: October 26, 2020 Subjective Pt is doing well s/p surgery, he is seen eating lunch which is clear liquid diet, tolerating it without any issues. He reports chewing tobacco- encouraged to stop - stated should avoid this completely for next two weeks for healing purposes. He was agreeable to a nicotine patch. Denies any other acute complaints. Physical Exam Constitutional: well groomed and + overweight Eyes: PERRL, conjunctivae normal, anicteric sclerae normal visual hui by confrontation ENMT: external ear and nose normal, oropharynx normal Mouth: + oral mucosal abnormality, + malodorous breath and + gingival abnormality Neck: normal visual inspection, trachea midline, + anterior neck swelling, + submandibular swelling, + short neck, + thick neck and + facial hair Thyroid: normal thyroid Skin: normal turgor Psychiatric: Orientation: oriented x 3 and oriented to person Apperance: appropriately groomed Eye Contact: good eye contact Lymphatic: + lymphadenopathy and + cervical lymphadenopathy Results & Data ([facility]) Vital Signs (Past 12 Hours) Vital Signs Temp Pulse Pulse Resp BP Pulse Ox 10/28/20 08:00 36.8 C 87 16 191/98 H 99 10/28/20 02:50 36.6 C 85 16 160/90 H 99 10/27/20 23:44 36.7 C 97 H 16 170/102 H 97 PG Care Time/CCT Total # of Minutes Spent Total Time Spent with Patient: Total time spent is greater than 50% in coordination of care (as documented) at patient's floor/unit and/or counseling patient: Coding Level of Care Code 14291 Subseq Hosp Care Lvl 1
--- NOTE | 2020-10-28 11:35 | Discharge Summary ---
Date of Service October 28, 2020 Admission HPI Per Admitting Provider The patient is a 55-year-old male with a past medical history of hypertension and obesity, who presents as noted above. He denies any systemic symptoms such as fevers, chills, nausea, vomiting, fatigue or weakness. He was seen by Dr. Barnes from maxillofacial surgery,, who asked that the patient be admitted to medical service overnight, and he was planning on taking the patient to the OR in the morning. Principal Diagnosis Michael's Angina Discharge Exam Constitutional WD/WN, vitals as above Eyes + anicteric sclerae ENMT right side of neck with dressing in palce not removed, speech normal Neck trachea midline, no thyromegaly Respiratory normal respiratory effort, lungs clear to auscultation Cardiovascular RRR, no murmur, no edema Musculoskeletal Extremities: extremities normal to inspection; no cyanosis and no clubbing Skin no rashes, warm and dry Neurologic moves all extremities and awake; no focal motor deficits Psychiatric A+Ox3, euthymic affect Lymphatic no lymphedema Discharge Data Allergies Allergy/AdvReac Type Severity Reaction Status Date / Time No Known Allergies Allergy Unverified 10/30/20 10:07 Consultations 10/26/20 15:50 ED Decision to Admit Stat [facility]-Dr. Joni Barnes Procedures Performed Operation Date: 10/27/20 09:10 Actual Procedures p Right Facial Incision and Drainage(Right) - Joni Barnes, TERA Ordered Studies 10/26/20 12:55 CT soft tissue neck w con Stat Hospital Course (1) Michael's angina: - 5 cm right submandibular mass/abscess- Status post dental extraction last week. Accumulated while on amoxicillin. - terated with Unasyn 3 g IV q6h - Dr. Barnes performed I&D 10/27- appreciate, drain left in place and plan for outpt follow up closely tolerating diet and stable for dc to home on Augmentin and clinda as per OMFS recommendation pain control as needed (2) Dental abscess: as above (3) Acute hyponatremia: - Improved to 132 - pt admits to drinking 3-5 beers per day at least 4-5 days per week. Reports goes 4-5 days without drinking any alcohol at times. Possible hyponatremia secondary to beer potomania. Encouraged to diminish alcohol intake. Denies ever having withdrawal sx, monitor. - Held HCTZ while here but can restart upon discharge -advised cessation of EtOH -follow BMP with PCP as outpt (4) Abnormal LFTs: mildly elevated upon admission, then normal on day of discharge - Likely secondary to alcohol use as above, counseled on cessation as above -added thiamine, folic acid, MVI to be continued upon discharge (5) Obesity (BMI 30-39.9): - Diet and exercise to be encouraged BMI 32.6 (6) Tobacco use: - chews tobacco, cessation encouraged. Stated should not chew during active healing s/p dental abscess I&D. Pt agreeable. -order nicotine patch. (7) HTN (hypertension): BPs quite elevated here but missed meds on day of admission. BPs improved - Cont losartan 50 mg daily and metoprolol succinate 100 mg daily, restarting hctz as above, watch for hyponatermia as outpt DVT ppx: ambulatory CODE: FULL Dispo: stable for dc to home Total Time Total Time Spent Total Time Spent (In Minutes): 35 min Total Time Includes: Examination of the Patient, Discharge Planning and Medication Reconciliation Discharge Plan Discharge Items Patient Disposition: Home - Self-Care Reason For Visit: POST SURGERY INFECTION IN MOUTH Discharge Diagnosis: s/p submandibular infection Condition on Discharge: Good Goals: avoid chewing tobacco Activity: Resume your previous activity Lifting: Gradually increase as tolerated Bathing: No limitations Exercise/Sports: Wait until after follow-up appointment Driving/Machine Use: Resume 1 day after discharge Weightbearing: Full weightbearing Non-emergency contact: Surgeon Call non-emergency contact if: you have any medication questions, your symptoms worsen, your pain is not controlled, your pain is worsening, your temperature is above 101.5, your wound has increased redness, your wound has increased drainage and your wound pain has increased Follow-up/Referrals: Gogo Rendon MD [Primary Care Provider] - (Follow upwithin 1 week) Joni Banres DMD [Physician] - 10/30/20 8:30 am Diet: Heart Healthy Diet Texture: Easy to Chew Addtl Attending Provider Instructions: ADDITIONAL ACTIVITY RECOMMENDATIONS: * Ethel teeth after every meal. It is very important to keep your mouth clean to prevent infection. * Starting tonight rinse with the Peridex as directed then 2 x a day * it is very important to keep well hydrated, this prevents fever SPECIAL CARE INSTRUCTIONS: * apply heat (hot water bottle or heating pad) for the next two days, as often as possible. * Tomorrow start rinsing your mouth with 1/2 teaspoon salt in 8 ounces warm water. This rinse should be used every 4-6 hours. * You may experience slight nausea. To prevent this, never take your medication on an empty stomach. If nauseated, take small sips of franklin michelle until you feel better; then you may start on applesauce and toast. * Some swelling is common. It should gradually decrease within 4-5 days. * A certain amount of bleeding is to be expected. It is often possible to control mild oozing by placing folded gauze over the area and biting down for 30 minutes. If you are unable to control excessive bleeding, call Dr Barnes at [phone] * You may experience some discomfort for a few days. If pain or swelling increases, Call Dr Barnes * Return to the office for a follow up check up if one was given to you. * If you do not have a follow up appointment please call the office at [phone] and set one up for 10-15 days after your surgery Addtl Technical Solution Architect Provider Instructions: Please refrain from drinking alcohol. You should continue on the vitamins recommended for you to improve your nutrition. Your sodium level was low due to your water pill and possibly dehydration. It is ok to restart your HCTZ but please have your primary care physician follow up on your sodium levels after your visit. Pending Studies at Discharge: Yes Studies:: C&S results Stand-Alone Forms: My [facility] mobifriends, Opioid Pain Management, Smoking Cessation Medications and DC Order Prescriptions: New folic acid 400 mcg Tablet 400 mcg PO QAM Qty: 30 RF: 0 multivitamin [Daily-Winnie] Tablet 1 tab PO QAM Qty: 30 RF: 0 thiamine HCl (vitamin B1) [Vitamin B-1] 100 mg Tablet 100 mg PO QAM Qty: 30 RF: 0 Continued amoxicillin-pot clavulanate 875-125 mg tablet 1 tab PO Q12H Qty: 20 RF: 0 clindamycin HCl 300 mg capsule 300 mg PO BID 7 Days Qty: 20 RF: 0 chlorhexidine gluconate [Peridex] 0.12 % mouthwash 15 ml mucous membrane BID Qty: 473 RF: 0 nicotine [Nicoderm CQ] 21 mg/24 hr patch 24 hour 1 patch transdermal DAILY Qty: 28 RF: 0 losartan 50 mg tablet 50 mg PO DAILY RF: 0 metoprolol succinate 100 mg tablet extended release 24 hr 100 mg PO DAILY RF: 0 hydrochlorothiazide 25 mg tablet 25 mg PO DAILY RF: 0 albuterol sulfate 90 mcg/actuation HFA aerosol inhaler 2 puff INHALATION DAILY PRN (Reason: Shortness Of Breath) RF: 0 Discharge Orders: Discharge Order (Routine); Ordered 10/28/20 Ordered By: Joni Oneil/Other Patient Handouts: ED Dental Abscess Facial Cellulitis Admission Data Admit Date/Time: 10/26/20 16:55 Attending Provider: Aileen Oliver Admit Provider: Garret Ritchie Primary Care Provider: Gogo Rendon Other Providers: Joni Barnes Interventions: Discharge Summary Assessment (RN) Last Done: 10/28/20 09:29 Coding Level of Care Code D/C Day Management >30 mins Diagnoses Michael's angina K12.2 Dental abscess K04.7 Acute hyponatremia E87.1 Abnormal LFTs R94.5 Obesity (BMI 30-39.9) E66.9 Tobacco use Z72.0 HTN (hypertension) I10
--- NOTE | 2020-11-01 22:16 | Operative Report ---
PG Post Operative Report Pre & Post Diagnosis Operation Date: 10/27/20 09:10 Pre-Op Diagnosis: Post Surgery Infection in Mouth Post-Op Diagnosis: Post Surgery Infection in Mouth I identified the patient and participated in the time-out.: Yes Procedure Operation Date: 10/27/20 09:10 Actual Procedures p Right Facial Incision and Drainage(Right) - Joni Barnes, DMD ADMITTING DIAGNOSES: WILL ANGINA Acute right side subperiosteal, submandibular submental and masseteric space infection secondary to fractured and infected teeth which was extracted about 1 week ago by his dentist, he had swelling at that time as well but now much worse. POSTOPERATIVE DIAGNOSES: Acute right side subperiosteal, submandibular/ submental and masseteric space infection secondary to fractured and infected tooth which was removed by dentist # [id number] OPERATION: Incision and drainage of acute subperiosteal, submandibular and masseteric space abscess Will ANGINA I&D OPERATION IN DETAIL: After this patient was cleared to undergo general anesthesia, brought down to the operating room and placed under general anesthesia via oral-tracheal intubation. After adequate anesthesia was obtained, the patient was prepped and draped in the usual manner for incision and drainage of facial infection. At this time, the facial area was prepped in the usual manner and sterile dressings were applied. At this time, a time-out was taken to ensure that we had Eddi Wilbert in the room, which we did and that we had the appropriate positioning, antibiotic delivery and the chart completion and the proper site. Being everyone agreed and the operation now began. Sterile dressings were applied around the facial area and the area was isolated. At this time, an oropharyngeal throat pack was placed. Oral cavity was irrigated, dried, and Peridex mouth rinse was also irrigated into the mouth. A bite block was placed on the left side and I turned my attention now to the lower right side. I then used local anesthesia in the form of lidocaine 2 % with epi with a vasoconstrictor and obtained a block of the inferior alveolar nerve on the right side. After adequate period of time to allow for hemostasis and local anesthetic effect, I replaced the oropharyngeal throat pack to a dry one. I turned my attention to the massive swelling right submand, sub mental area. A 15 blade was used to make a dependant drainage site at the angle of the mandible, a hemostat was introduced and copious pus drained from the site. Another incision was made in the submental area. The hemostat was introduced and more pus was drained.I made another incision in the cheek to drain the masseter space deep to the muscle. I now used a 15 blade and made an incision along the alveolar ridge where the infected tooth was present. By making the incision along the alveolar ridge and extending it around the adjacent teeth which would be teeth #31 and 30, I now reflected this full thickness mucoperiosteal flap. On doing so, we had copious amounts of very thick purulent discharge. I then spent a lot of time irrigating the subperiosteal space and palpating the subperiosteal space to get more drainage. I then used a periosteal elevator, I went down below the inferior border of the mandible into the submandibular space where I was able to drain some further loculations of pus. I still noticed that we were getting a lot of purulent drainage and I then opened up the lingual aspect as well once again by opening up the lingual aspect, I was able to gain more drainage of this area. At this time intraoral-extraoral Christiana drains were placed to drain the submental/Submandibular/floor of the mouth and lateral subperiosteal space. I felt very confident that we drained the area adequately I was very satisfied with the drainage that we obtained. Now, I used a 3-0 nylon suture to hold the drains in place as well as the tissues. The patient tolerated the procedure extremely well. He was then allowed to recover in the usual manner. Upon full recovery, the patient was taken to the recovery room breathing in satisfactory condition with all vital signs stable. In the recovery room, I evaluated him to make sure that there was no bleeding and his airway was maintained. At this time, he will be allowed to recover and then be transferred back to the floor. My plan would be to most likely discharge the patient within the next 24 hours. He will be sent home with antibiotics and pain medication and will be requested to see me for drain removal and evaluation Extensive I&D of Will type infection right side of the face. I attest to the content of the Intraoperative Record and any orders documented therein. Any exceptions are noted below. Surgeon Joni Barnes, DMD Eddy Current Inspector none Estimated Blood Loss 10 Findings Consistent with Post-Op Diagnosis Specimens C&S from pus drainage Description of Procedure I & D of extensive facial right side infection. I attest to the content of the Intraoperative Record and any orders documented therein. Any exceptions are noted below.
== END 2020-10-28 12:08 | disposition home or self-care (01) | DRG 863 ==
LOC: ED 12:33 → SUATTDRO 16:55 → 3N 16:55
DX: Z68.32 Body mass index [BMI] 32.0-32.9, adult; I10 Essential (primary) hypertension; K12.2 Cellulitis and abscess of mouth; K04.7 Periapical abscess without sinus; T81.41XA Infection following a procedure, superficial incisional surgical site, initial encounter; Y83.8 Other surgical procedures as the cause of abnormal reaction of the patient, or of later complication, without mention of misadventure at the time of the procedure; Z79.899 Other long term (current) drug therapy; F17.220 Nicotine dependence, chewing tobacco, uncomplicated; E87.1 Hypo-osmolality and hyponatremia; E66.9 Obesity, unspecified